=== PATIENT | female | born 1990 ===

== ENCOUNTER 2017-09-24 12:48 | Emergency (ER) | payer OTHER ==
[2016-04-30 16:23] VITALS: BMI 21.9
[2017-09-24] MEDS ORDERED: Dextrose 5%/Lactated Ringer's 1,000 ML IV SCH (15:15)
--- NOTE | 2017-09-24 15:46 | US ---
Indication: decreased movements Comparison: None available. Technique: Real-time ultrasound was performed through the pelvis. Findings: There is a single living fetus in cephalic presentation. Amniotic fluid volume is within normal limits. Anterior placenta. The placenta is not previa. There are no adnexal masses or cysts evident. Cervix length measures approximately 3.5 cm. The study was performed for the emergent evaluation of decreased movements, and the whole anatomic survey of the fetus was not performed. Of note, a prominent collecting system of the left kidney identified. Also, the umbilical cord appears draped around the neck. Measurements and calculations: Fetus has a composite sonographic age of 34 weeks 5 days. This calculation is based on the biparietal diameter, head circumference, abdominal circumference, and femur length. Estimated heart rate 124.9 beats per min. Biophysical Profile: movements 2/2 breathing 2/2 tone 2/2 Amniotic fluid 2/2 Total score impression: 03/09 Impression: Single living fetus with a composite sonographic age of 34 weeks 5 days. Estimated heart rate 124.9 beats per min. Biophysical profile of 8 out of 8. The umbilical cord appears draped around the neck. Evidence of prominent collecting system of the left kidney. Findings related to RN Gene in labor and delivery unit on 09/24/17 at 3:44 p.m..
[2017-09-24 17:20] LABS: SQUAMOUS EPITHIAL 2 /hpf (0-5); URINE BACTERIA MOD (<OCC); URINE BILIRUBIN NEGATIVE (NEGATIVE); URINE BLOOD NEGATIVE (NEGATIVE); URINE CLARITY Hazy (Clear); URINE COLOR Straw (YELLOW); URINE GLUCOSE (UA) NORMAL (Normal); URINE LEUKOCYTE ESTERASE NEG Leu/uL (Negative); URINE NITRATE NEGATIVE (NEGATIVE); URINE PROTEIN NEGATIVE (NEGATIVE); URINE UROBILINOGEN NORMAL mg/dL (0.2-1.0)
--- NOTE | 2017-09-24 17:46 | OBHP ---
Datetime: 09/24/2017 17:44 Admit Comment, IP Provider: pt was seen at bed side. having ctxs on mnior not feeling them. feeld ba by moving sono bpp 8/8 renal cyst and cord arround neck ivf given terb x 1 ve closed plan dc home ptl given po hyr f/u dr cantu in 2-[address] cantu aware FHR - Baseline A Provider: 120 Contraction Comments Provider: NONE Vital Signs Provider: Reviewed; Within Normal Limits NICHD Variability Prov Fetus A: Moderate 6-25bpm NICHD Accel Fetus A IP Provider: [id number] FHR Category Provider Fetus A: Category I Dilatation, Provider: 0 Effacement, Provider: 0 Station, Provider: -3 Datetime: 09/24/2017 13:49 IP Adm Impression: , intrauterine ; No Active Labor IP Admit Plan: Observation/Evaluation Comments, ACOG Physical Exam: GRAVID,NON TENDER EGA AdmitDate IP: 36.0 IP Chief Complaint: Decreased movement NICHD Decel Fetus A IP Provider: None
--- NOTE | 2017-09-24 17:49 | OBDCSUM ---
Datetime: 09/24/2017 17:46 Discharged to, Provider: Home Follow up at, Provider: 2-3days Follow up in weeks, Provider: dr cantu Discharge Comment, Provider: dc home ptl given po hyr f/u dr cantu in 2-[address] cantu aware Discharge Diagnosis Prov Other: 36week nst t ctxs dec fm
[2017-09-24 22:19] VITALS: BP 111/83; PULSE 86; RESP 20; TEMP 98.1; O2SAT 100
== END 2017-09-24 18:00 | disposition home or self-care (01) ==
LOC: C.EROB 12:48
DX: O47.03 False labor before 37 completed weeks of gestation, third trimester (principal); Z3A.36 36 weeks gestation of pregnancy
CPT/HCPCS: 76815; 76818; 81001; 96360; 96372; 99283; J3105; J7120

== ENCOUNTER 2017-09-26 22:22 | Emergency (ER) | payer OTHER ==
[2016-04-30 16:23] VITALS: BMI 21.9
[2017-09-26] MEDS ORDERED: Penicillin G 5 Million Unit Vial IVPB ONE ×2 (22:53→23:22)
[2017-09-26] MEDS ORDERED: Betamethasone Soluspan 30 mg/5mL Inj Susp IM STA (22:55)
[2017-09-26] MEDS ORDERED: Lactated Ringer's 1,000 ML IV SCH (23:00)
[2017-09-26 23:33] LABS: BASO % 0.5 % (0.0-2.0); EOS % 0.1 % (0.0-4.0); HEMOGLOBIN 11.4 g/dL (11.0-16.0); LYMPH # 2.3 K/uL (1.0-4.3); LYMPH % 21.9 % (20.0-40.0); MEAN CELL VOLUME 85.1 fL (81.0-99.0); MEAN CORPUSCULAR HEMOGLOBIN 28.6 pg (27.0-31.0); MEAN CORPUSCULAR HGB CONC 33.6 g/dL (33.0-37.0); MEAN PLATELET VOLUME 10.8 fL (7.2-11.7); MONO # 0.7 K/uL (0.0-0.8); MONO % 6.8 % (0.0-10.0); NEUT # 7.5 K/uL (1.8-7.0); NEUT % 70.7 % (50.0-75.0); RBC 3.98 Mil/uL (3.80-5.20); RED CELL DISTRIBUTION WIDTH 15.4 % (11.5-14.5); WHITE BLOOD COUNT 10.5 K/uL (4.8-10.8)
[2017-09-26 23:36] LABS: SQUAMOUS EPITHIAL < 1 /hpf (0-5); URINE BACTERIA OCC (<OCC); URINE BILIRUBIN NEGATIVE (NEGATIVE); URINE BLOOD 2+ (NEGATIVE); URINE CLARITY Clear (Clear); URINE COLOR Colorless (YELLOW); URINE GLUCOSE (UA) NORMAL (Normal); URINE LEUKOCYTE ESTERASE NEG Leu/uL (Negative); URINE NITRATE NEGATIVE (NEGATIVE); URINE PROTEIN NEGATIVE (NEGATIVE); URINE UROBILINOGEN NORMAL mg/dL (0.2-1.0)
[2017-09-26 23:46] LABS: CALCIUM 9.1 mg/dl (8.6-10.4); GFR AFRICAN-AMERICAN > 60; GFR NON-AFRICAN AMERICAN > 60
[2017-09-26 23:52] LABS: ALB/GLOB RATIO 0.9 (1.0-2.1); ALBUMIN 3.5 g/dL (3.5-5.0); ALT/SGPT 20 U/L (9-52); AST/SGOT 32 U/L (14-36); BLOOD UREA NITROGEN 10 mg/dL (7-17)
[2017-09-27 00:17] LABS: HEPATITIS B SURFACE AG Negative (NEGATIVE)
--- NOTE | 2017-09-27 00:57 | OBHP ---
Datetime: 09/26/2017 22:57 IP Adm Impression: , intrauterine Admit Comment, IP Provider: 27 y/o @ 36.3 wks GA c/o ctx since yesterday every 5 min, pain incr easing intensity and fruqency from 10/09 to 02/08. pt dnies any lof, vb, ctx, +FM. Pt rpeort was agata jacob in ER on Wednesday for similar complaint with regular painful contractions that improved with terbul atine and rest and was subsquently dc home. Pt rpeort uncomplicated prenatla care. 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 hx of abnomral pap, fibroids, ovairn cyst, STi PMH: Dneies PSH: Denies FHX: non contributory MEDS: PNV SHX: negatrive etoh/tobacco/drugs A/P @ 36.3 wks GA with contractions r/o labor -NPO, IVH -CBC, labs -Celestone x 1 -Cont toco and efm -reexamine to r/o labor plan dw Dr Reeves pt reexamined reports pain improved with ctx spcaking out VE: /-3 vtx intact plan for terbutaline dc home has follow up today with pmd and also second celestone preterml labor precaitons Pelvic Type - PN: Adequate Extremities - PN: Normal Abdomen - PN: Normal Back - PN: Normal Breast - PN: Normal Lungs - PN: Normal Heart - PN: Normal Thyroid - PN: Not Done Neurologic - PN: Not Done HEENT - PN: Normal General - PN: Normal Presentation-Admit: Vertex FHR - Baseline A Provider: 125 Membranes, Provider: Intact Gestation - Est Wks by US: 36.2 IP Hx Assessment: The History has been Reviewed and is Current EGA AdmitDate IP: 36.3 Vital Signs Provider: Reviewed IP Chief Complaint: Uterine contractions NICHD Variability Prov Fetus A: Moderate 6-25bpm FHR Category Provider Fetus A: Category I NICHD Decel Fetus A IP Provider: None Dilatation, Provider: 1 Effacement, Provider: 70 Station, Provider: -3 Genitourinary Exam: Normal DTRs - PN: Normal
--- NOTE | 2017-09-27 00:59 | OBDCSUM ---
Datetime: 09/27/2017 00:55 Discharged to, Provider: Home Follow up at, Provider: Dr Reeves Disch Instr Diet: Regular Discharge Instructions, Provider: Routine instructions given Discharge Time: 09/27/2017 00:56 Follow up in weeks, Provider: 09/07/2017 Discharge Comment, Provider: if pain increasing, getting cloesr to together, vb, leakage of fluid or noth feeling well or decreaed fetla movment call adn rtuen to ER Discharge Diagnosis Prov Other: preerm ctx improved with hdyration vagianl exam uncahgne s/p celelstone, s/p terbulaine
[2017-09-27] MEDS ORDERED: Penicillin G Potassium 2.5 MU in Sodium Chloride 0.9% 100 ML IVPB SCH (03:00)
[2017-09-27 05:35] VITALS: BP 110/70; PULSE 63; RESP 18; TEMP 98.7
[2017-09-27 16:23] LABS: RAPID PLASMA REAGIN NONREACTIVE (NONREACTIVE)
== END 2017-09-27 01:20 | disposition home or self-care (01) ==
LOC: C.EROB 22:22
DX: O47.03 False labor before 37 completed weeks of gestation, third trimester (principal); Z3A.36 36 weeks gestation of pregnancy
CPT/HCPCS: 80053; 81001; 85025; 86592; 86703; 86762; 86850; 86900; 87340; 96365; 99283; J0702; J2540; J3105; J7120

== ENCOUNTER 2017-09-27 12:02 | Inpatient (IN) | payer OTHER ==
[2016-04-30 16:23] VITALS: BMI 21.9
[2017-09-27] MEDS ORDERED: Betamethasone Soluspan 30 mg/5mL Inj Susp IM ONE (12:48)
[2017-09-27] MEDS ORDERED: Penicillin G 5 Million Unit Vial IVPB ONE ×2 (12:58→13:00)
[2017-09-27] MEDS ORDERED: Lactated Ringer's 1,000 ML IV SCH (13:00)
--- NOTE | 2017-09-27 14:32 | OBHP ---
Datetime: 09/27/2017 13:00 IP Adm Impression: , intrauterine IP Admit Plan: Admit to unit; Initiate labor protocol Admit Comment, IP Provider: CC: Contractions, sent by primary OBGYN 27 yo female with no significant PMH presents to ER complaining of contractions since yesterd ay. Admits to passing mucus plug (dark brown sticky discharge) and some spotting since yesterday. She was seen here yesterday for the same complaints, and was given a tocolytic, and has noticed the cont ractions slowed down, but have not stopped. She reports feeling contractions every 7 minutes. She was seen by her primary OBGYN today who reportedly found her effacted and 3cm dilated, and told her to c ome to the ER. Patient denies leakage of fluids. Is feeling the baby move currently. Denies chest diony n, shortness of breath, RUQ abdominal pain, dizziness, headache, fever, chills, dysuria. PMH: Denies PSH: Denies Home meds: Pepcid, as needed. Colace, as needed. vitamins. Social Hx: Denies tobacco, alcohol, or elicits. Lives at home with and mother. Family Hx: Father, 61, with HTN and DM. Mother, 50, with HTN. Denies any family history of breast, ovaria, uterine or cervical CA. 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 Current VS: BP 102/53, HR 60, O2 100% Gen: NAD, AAOx3 CV: RRR, +S1, +S2 Pulm: CTA b/l Abd: Soft, nontender, gravid uterus Ext: No clubbing, cyanosis, or edema A/P 27 yo female at 36w4d KIRIT 10/22/17 presents complaining of contractions every 7 min - Admit to L_D - TOCO and monitor - Labs drawn yestrday; repeat Type and Screen - Celestone - GBS unknown; Penicillin G stat and Q4H until delivery - IVF - Plan discussed with Dr. Oliva Encarnacion, DO PGY1 agrees ith above Pelvic Type - PN: Adequate Extremities - PN: Normal Abdomen - PN: Normal Back - PN: Normal Breast - PN: Normal Lungs - PN: Normal Heart - PN: Normal Thyroid - PN: Normal Neurologic - PN: Normal HEENT - PN: Normal General - PN: Normal FHR - Baseline A Provider: 120 EGA AdmitDate IP: 36.3 Vital Signs Provider: Reviewed; Within Normal Limits IP Chief Complaint: Uterine contractions NICHD Variability Prov Fetus A: Moderate 6-25bpm NICHD Accel Fetus A IP Provider: 15X15 FHR Category Provider Fetus A: Category I NICHD Decel Fetus A IP Provider: None Dilatation, Provider: 3 Effacement, Provider: 90 Station, Provider: -1 Genitourinary Exam: Normal DTRs - PN: Normal
[2017-09-27] MEDS ORDERED: Bupivacaine HCl/FentaNYL Cit 100 ML EPI ONE (15:21)
--- NOTE | 2017-09-27 18:18 | OBADHP ---
Datetime: 09/27/2017 13:00 Admit Comment, IP Provider: CC: Contractions, 27 yo female with no significant PMH presents to ER complaining of contractions since yesterd ay. Admits to passing mucus plug (dark brown sticky discharge) and some spotting since yesterday. She was seen here yesterday for the same complaints, and was given a tocolytic, and has noticed the cont ractions slowed down, but have not stopped. She reports feeling contractions every 7 minutes. She was seen by her primary OBGYN today who reportedly found her effacted and 3cm dilated, and told her to c ome to the ER. Patient denies leakage of fluids. Is feeling the baby move currently. Denies chest diony n, shortness of breath, RUQ abdominal pain, dizziness, headache, fever, chills, dysuria. PMH: Denies PSH: Denies Home meds: Pepcid, as needed. Colace, as needed. vitamins. Social Hx: Denies tobacco, alcohol, or elicits. Lives at home with and mother. Family Hx: Father, 61, with HTN and DM. Mother, 50, with HTN. Denies any family history of breast, ovaria, uterine or cervical CA. 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 Current VS: BP 102/53, HR 60, O2 100% Gen: NAD, AAOx3 CV: RRR, +S1, +S2 Pulm: CTA b/l Abd: Soft, nontender, gravid uterus Ext: No clubbing, cyanosis, or edema A/P 27 yo female at 36w4d KIRIT 10/22/17 presents complaining of contractions every 7 min - Admit to L_D - TOCO and monitor - Labs drawn yestrday; repeat Type and Screen - Celestone - GBS unknown; Penicillin G stat and Q4H until delivery - IVF - Plan discussed with Dr. Oliva Encarnacion, DO PGY1 Patient examined agree with residentkeila meade, assessmemt and plan Patient is at 36.3wga in labor.GBS unknown -admit -se eorders Pelvic Type - PN: Adequate Extremities - PN: Normal Abdomen - PN: Normal Back - PN: Normal Breast - PN: Normal Lungs - PN: Normal Heart - PN: Normal Thyroid - PN: Normal Neurologic - PN: Normal HEENT - PN: Normal General - PN: Normal FHR - Baseline A Provider: 120 Vital Signs Provider: Reviewed; Within Normal Limits IP Chief Complaint: Uterine contractions NICHD Variability Prov Fetus A: Moderate 6-25bpm NICHD Accel Fetus A IP Provider: 15X15 FHR Category Provider Fetus A: Category I NICHD Decel Fetus A IP Provider: None Dilatation, Provider: 3 Effacement, Provider: 90 Station, Provider: -1 Genitourinary Exam: Normal DTRs - PN: Normal EGA AdmitDate IP: 36.3 IP Adm Impression: , intrauterine IP Admit Plan: Admit to unit; Initiate labor protocol Datetime: 09/26/2017 22:57 Presentation-Admit: Vertex Membranes, Provider: Intact Gestation - Est Wks by US: 36.2 IP Hx Assessment: The History has been Reviewed and is Current Datetime: 09/24/2017 17:44 Contraction Comments Provider: NONE Datetime: 09/24/2017 13:49 Comments, ACOG Physical Exam: GRAVID,NON TENDER
[2017-09-27] MEDS ORDERED: Lidocaine 2% Inj (20ml) ONE (18:46)
--- NOTE | 2017-09-27 19:42 | OBDS ---
DELIVERY PERSONNEL Delivery Doctor: Milka Reeves MD Lead Material Handler: Rosita Cruz RN Anesthesiologist: Alexi Vincent MD MATERNAL INFORMATION Delivery Anesthesia: Epidural Estimated Blood Loss (ml): 300 Placenta Cultured: No Maternal Complications: None Provider Comments: of a male from SCOTTIE position.nucahlx1 around neclk tight.cord clamped a nd cut.body and shoulders delivered without difficulty.cord blood collected.placenta spontaneously de livered.second degree perineal laceration with 2-0 chromic Patient stable.fundus firm patient stable LABOR SUMMARY EDC: 10/22/2017 00:00 No. Babies in Womb: 1 Attempted: No Labor Anesthesia: Epidural LABOR INFORMATION Reason for Induction: Not Applicable Complete Dilatation: 09/27/2017 18:30 Group B Beta Strep: Not Done Antibiotics # of Doses: 2 Antibiotics Time of Last Dose: 1700 Steroids Given: > 24 Hours before Delivery MEMBRANES Membranes Rupture Method: Spontaneous Rupture of Membranes: 09/27/2017 18:30 Length of Rupture (hrs): 0.52 Amniotic Fluid Color: Clear Amniotic Fluid Amount: Small Amniotic Fluid Odor: Normal STAGES OF LABOR Stage 2 hrs: 0 Stage 2 min: 31 Stage 3 hrs: 0 Stage 3 min: 4 VAGINAL DELIVERY Episiotomy: None Laceration Extension: Second Degree Laceration Type: Perineal Laceration Repair: Yes Laceration Repair Note: second degree perineal laceration reapired with 2-0 chromic Sponge Count Correct: Yes; Vaginal Sweep Performed Sharps Count Correct: Yes BABY A INFORMATION Delivery Date/Time: 09/27/2017 19:01 Method of Delivery: Vaginal Born in Route : No : N/A Forceps: N/A Vacuum Extraction: N/A Shoulder Dystocia : No SHOULDER DYSTOCIA BABY A Delivery Date/Time: 09/27/2017 19:01 PRESENTATION/POSITION BABY A Presentation: Cephalic Cephalic Presentation: Vertex Vertex Position: Left Occipital Anterior Breech Presentation: N/A PLACENTA INFORMATION BABY A Placenta Delivery Time : 09/27/2017 19:05 Placenta Method of Delivery: Spontaneous Placenta Status: Delivered SCORES BABY A Heart Rate 1 min: >100 bpm Resp Effort 1 min: Good Cry Reflex Irritability 1 min: Cough or Sneeze or Pulls Away Muscle Tone 1 min: Active Motion Color 1 min: Body Kinney, Extremities Blue Resuscitation Effort 1 min: Tactile Stimulation SCORE 1 MIN: 9 Heart Rate 5 min: >100 bpm Resp Effort 5 min: Good Cry Reflex Irritability 5 min: Cough or Sneeze or Pulls Away Muscle Tone 5 min: Active Motion Color 5 min: Body Kinney, Extremities Blue SCORE 5 MIN: 9 INFORMATION BABY A Gestational Age at Delivery: 36.3 Gestational Status: Outcome : Liveborn Condition : Stable Sex: Male IDENTIFICATION/MEDS BABY A ID Band Number: [id number] ID Band Location: Left Leg; Left Arm Sensor Applied: Yes Sensor Number: [id number] Sensor Location : Cord Clamp WEIGHT/LENGTH BABY A Infant Birthweight (gms): 2310 Weight (lb): 5 Weight (oz): 1 Length Inches: 18.00 Infant Length cms: 45.7 CORD INFORMATION BABY A No. Cord Vessels: 3 Nuchal Cord : Around Neck x1, Tight Infant Cord pH Baby Venous: 7.29 Cord Blood Taken: Yes Infant Suction: Mouth ASSESSMENT BABY A Infant Complications: None Physical Findings at Delivery: Within Normal Limits Infant Respirations: Appears Normal Stereotype Molder/ALS Called : No Care By: Hima Craig RN Transferred To: Remains with Mother
[2017-09-27] MEDS ORDERED: Benzocaine/Menthol 20%-0.5% Topical Spray (60 ml) TOP PRN (19:52)
[2017-09-27] MEDS ORDERED: Oxycodone/Acetaminophen 5/325 mg Tab PO PRN ×2 (19:52)
[2017-09-28 07:48] LABS: BASO % 0.1 % (0.0-2.0); HEMOGLOBIN 10.1 g/dL (11.0-16.0); LYMPH # 1.7 K/uL (1.0-4.3); LYMPH % 8.5 % (20.0-40.0); MEAN CELL VOLUME 85.6 fL (81.0-99.0); MEAN CORPUSCULAR HEMOGLOBIN 28.4 pg (27.0-31.0); MEAN CORPUSCULAR HGB CONC 33.1 g/dL (33.0-37.0); MEAN PLATELET VOLUME 10.8 fL (7.2-11.7); MONO # 1.2 K/uL (0.0-0.8); NEUT # 17.3 K/uL (1.8-7.0); NEUT % 85.4 % (50.0-75.0); PLATELET COUNT 150 K/uL (130-400); RBC 3.56 Mil/uL (3.80-5.20); RED CELL DISTRIBUTION WIDTH 15.3 % (11.5-14.5)
[2017-09-28 07:50] LABS: WHITE BLOOD COUNT 20.2 K/uL (4.8-10.8)
[2017-09-28 08:50] LABS: BANDS 1 % (0-2); LYMPHOCYTE 4 % (20-40); MONOCYTE 2 % (0-10); NEUTROPHIL 93 % (50-75); TOTAL CELLS COUNTED 100
[2017-09-28 08:51] LABS: ANISOCYTOSIS SLIGHT; HYPOCHROMIC SLIGHT; PLATELET ESTIMATE NORMAL (NORMAL); POLYCHROMIC SLIGHT
[2017-09-28] MEDS: Multiple Vitamins Tab PO SCH (15:36)
[2017-09-29 00:47] VITALS: RESP 20; O2SAT 98
--- NOTE | 2017-09-29 06:54 | OBPPN ---
Datetime: 09/29/2017 06:52 PP Pain Prov: Within normal limits PP Nausea Prov: Denies PP Flatus Prov: Yes PP BM Prov: Yes PP Heart Prov: Normal PP Lungs Prov: Normal PP Abdomen/Uterus Prov: Normal PP Lochia Prov: Normal PP CVA Tenderness Prov: Normal PP Extremities Prov: Normal PP C/S Incision Prov: Not Applicable PP Progress Prov: Normal Vital Signs Provider PP: Reviewed Datetime: 09/28/2017 09:00 PP Impression Prov: Normal progression PP Plan Prov: Continue present management PP Progress Note Prov: S-patient reports that her pain is well controlled.denies nusea, vomiting. he adache, chest pain, shortness of breath, numbness or tingling in hand sand feet O-VSS Afebrile Fundus firm and at umbilkicus extreemities no calf tenderness A/P Patient s/p vaginal delivery PPD 1 -follow up am cbc -monitor closely
--- NOTE | 2017-09-29 06:57 | OBPPN ---
Datetime: 09/29/2017 06:52 PP Progress Note Prov: S-patient reports that her pain is well controlled.denies nusea, vomiting. he adache, chest pain, shortness of breath, numbness or tingling in hand sand feet O-VS BP 92/61 Afebrile Fundus firm and at umbilkicus extreemities no calf tenderness A/P Patient s/p delivery PPD2 -WBC 20K yesterday.repeat cbc today.monitor for sisgns of infection -if wbc still continues to be evelated may need antibiotics -monitor closely
[2017-09-29 08:47] LABS: BASO % 0.2 % (0.0-2.0); EOS % 0.1 % (0.0-4.0); HEMOGLOBIN 10.8 g/dL (11.0-16.0); LYMPH # 3.3 K/uL (1.0-4.3); LYMPH % 21.1 % (20.0-40.0); MEAN CORPUSCULAR HEMOGLOBIN 28.4 pg (27.0-31.0); MEAN PLATELET VOLUME 10.4 fL (7.2-11.7); MONO # 0.8 K/uL (0.0-0.8); MONO % 5.1 % (0.0-10.0); NEUT # 11.7 K/uL (1.8-7.0); NEUT % 73.5 % (50.0-75.0); NRBC % 0.1 % (0.0-2.0); RBC 3.8 Mil/uL (3.80-5.20); RED CELL DISTRIBUTION WIDTH 15.7 % (11.5-14.5); WHITE BLOOD COUNT 15.8 K/uL (4.8-10.8)
[2017-09-29] MEDS: Multiple Vitamins Tab PO SCH (10:48)
[2017-09-29 23:09] VITALS: BP 124/77; PULSE 91; TEMP 97.6
== END 2017-09-29 23:00 | disposition home or self-care (01) | DRG 775 ==
LOC: C.EROB 12:02 → C.4D 12:17 → C.4M 20:52
PROVIDERS: ADMIT Student in an Organized Health Care Education/Training Program; ATTEND Student in an Organized Health Care Education/Training Program
PROC: 10E0XZZ Delivery of Products of Conception, External Approach (ICD-10-PCS; principal; 2017-09-27)
DX: O60.14X0 Preterm labor third trimester with preterm delivery third trimester, not applicable or unspecified (principal); O69.2XX0 Labor and delivery complicated by other cord entanglement, with compression, not applicable or unspecified; O70.1 Second degree perineal laceration during delivery; Z37.0 Single live birth